=== PATIENT | female | born 1985 | race Caucasian/White ===

== ENCOUNTER 2017-10-23 11:19 | Emergency (ER) | payer BC, MEDICAID ==
[~2017-10-23] VITALS: Ht 157.5 cm; Wt 52.8 kg
[~2017-10-23 11:19] MED LIST: CLON0.5T; CLON2TAB2; FLUO10CA13; FLUO40CA9; RISP0.5T24; RISP1TAB45
[2017-10-23 11:20] VITALS: BP 109/72
[2017-10-23] MEDS ORDERED: OXCA300T3 PO (11:40)
[2017-10-23] MEDS ORDERED: CLON0.5T PO (11:40)
== END 2017-10-23 12:51 | disposition home or self-care (01) ==
LOC: ED 12:45
DX: S90.02XA Contusion of left ankle, initial encounter (principal); Z88.2 Allergy status to sulfonamides; Z88.8 Allergy status to other drugs, medicaments and biological substances; F17.210 Nicotine dependence, cigarettes, uncomplicated; F31.9 Bipolar disorder, unspecified; W10.9XXA Fall (on) (from) unspecified stairs and steps, initial encounter; Y93.89 Activity, other specified; Y99.8 Other external cause status; Y92.39 Other specified sports and athletic area as the place of occurrence of the external cause
CPT/HCPCS: 99284